=== PATIENT | female | born 1990 | race Caucasian/White ===

== ENCOUNTER 2023-09-01 01:24 | Emergency (ER) | payer SELFPAY ==
[~2023-09-01] VITALS: Ht 157.5 cm; Wt 68.4 kg
[2023-09-01 01:25] VITALS: BP 107/70; TEMP 99.7; O2SAT 100
== END 2023-09-01 06:46 | disposition left against medical advice (07) ==
LOC: M ED 01:24
DX: Z53.21 Procedure and treatment not carried out due to patient leaving prior to being seen by health care provider (principal)

== ENCOUNTER → 2025-03-29 | Outpatient (CLI) | payer OTHER | LOC: M PLAIMG 09:41 | PROVIDERS: ATTEND Internal Medicine | DX: R01.1 Cardiac murmur, unspecified (principal) ==